=== PATIENT | male | born 1965 | race African-American/Black ===

== ENCOUNTER 2018-09-08 13:57 | Inpatient (IN) | payer MEDICAID, OTHER ==
[~2018-09-08] VITALS: Ht 182.9 cm; Wt 77.1 kg
[~2018-09-08 13:57] MED LIST: BISA-49 PO; CEFU500T PO; CEFU500T50 PO; CEPH-376 PO; CIPR500T87 PO; DOCU100C33 PO; METAMUCIL425 GM PO; OXYC-302 PO; TAMS-11 PO
[2018-09-08 14:36] LABS: BASOPHILS # (AUTO) 0.02 x10^3/uL (0-0.1); BASOPHILS % (AUTO) 1 % (0-1); EOSINOPHILS % (AUTO) 7 % (1-7); LYMPHOCYTES # (AUTO) 1.24 x10^3/uL (1-3.4); LYMPHOCYTES % (AUTO) 29 % (22-44); MD NO; MEAN CORPUSCULAR HEMOGLOBIN 30.2 pg (27.5-34.5); MEAN CORPUSCULAR HGB CONC 33.6 g/dL (33.2-36.2); MEAN CORPUSCULAR VOLUME 90.1 fL (81-97); MEAN PLATELET VOLUME 8.6 fL (7.4-10.4); MONOCYTES # (AUTO) 0.23 x10^3/uL (0.2-0.8); MONOCYTES % (AUTO) 5 % (2-9); NEUTROPHILS # (AUTO) 2.46 x10^3/uL (1.8-6.8); NEUTROPHILS % (AUTO) 58 % (42-75); PLATELET COUNT 271 x10^3/uL (130-400); RED BLOOD COUNT 5.29 x10^6/uL (4.38-5.82); RED CELL DISTRIBUTION WIDTH 14.1 % (9.4-14.8)
[2018-09-08 14:37] LABS: ALBUMIN 3.8 g/dL (3.4-5.0); ANION GAP 7 mmol/L (5-15); CALCIUM 9.2 mg/dL (8.5-10.1); CHLORIDE 105 mmol/L (98-107); CREATININE 3.52 mg/dL (0.7-1.3)
[2018-09-08 14:40] LABS: TROPONIN I 0.019 ng/mL (0.000-0.045)
[2018-09-08] MEDS ORDERED: LABETALOL 5MG/ML, 20ML ONE (15:54)
[2018-09-08] MEDS ORDERED: LABETALOL 5MG/ML, 20ML IVPush ONE (16:00)
[2018-09-08] MEDS ORDERED: SODIUM CHLORIDE FLUSH 10ML SYR IVF PRN (17:00)
[2018-09-08] MEDS ORDERED: hydrALAzine 20 MG/ML, 1ML IVPush PRN (17:30)
[2018-09-08] MEDS ORDERED: HYDROcodone/APAP 5/325 TABLET PO PRN (17:30)
[2018-09-08] MEDS ORDERED: ACETAMINOPHEN 325 MG TABLET PO PRN (17:30)
[2018-09-08] MEDS ORDERED: TEMAZEPAM 15 MG CAPSULE PO PRN (17:30)
[2018-09-08] MEDS ORDERED: ONDANSETRON 2MG/ML, 2ML IVPush PRN (17:30)
[2018-09-08] MEDS ORDERED: morphine SULFATE 10 MG/ML, 1ML IVPush PRN (17:30)
[2018-09-08 18:11] LABS: BASOPHILS # (AUTO) 0.03 x10^3/uL (0-0.1); BASOPHILS % (AUTO) 1 % (0-1); EOSINOPHILS # (AUTO) 0.34 x10^3/uL (0-0.4); EOSINOPHILS % (AUTO) 7 % (1-7); LYMPHOCYTES # (AUTO) 1.59 x10^3/uL (1-3.4); LYMPHOCYTES % (AUTO) 33 % (22-44); MD NO; MEAN CORPUSCULAR HEMOGLOBIN 29.7 pg (27.5-34.5); MEAN CORPUSCULAR HGB CONC 33.4 g/dL (33.2-36.2); MEAN PLATELET VOLUME 8.8 fL (7.4-10.4); MONOCYTES # (AUTO) 0.29 x10^3/uL (0.2-0.8); MONOCYTES % (AUTO) 6 % (2-9); NEUTROPHILS # (AUTO) 2.51 x10^3/uL (1.8-6.8); NEUTROPHILS % (AUTO) 53 % (42-75); PLATELET COUNT 258 x10^3/uL (130-400); RED BLOOD COUNT 4.86 x10^6/uL (4.38-5.82); RED CELL DISTRIBUTION WIDTH 14.2 % (9.4-14.8)
[2018-09-08 18:35] VITALS: BP 179/109
[2018-09-08] MEDS: SODIUM CHLORIDE 0.9% 1,000 ML IV SCH (21:59)
[2018-09-08] MEDS: METOPROLOL TARTRATE 50 MG TABLET PO SCH (22:00)
[2018-09-08] MEDS: NICOTINE 14MG/24 HR PATCH.TD24 TD SCH (22:00)
[2018-09-08 22:19] LABS: TROPONIN I 0.024 ng/mL (0.000-0.045)
[2018-09-08 23:11] LABS: AMPHETAMINE SCREEN, URINE Positive (Negative); BARBITURATE SCREEN, URINE Negative (Negative); BENZODIAZEPINE SCREEN, URINE Negative (Negative); CANNABINOID SCREEN, URINE Negative (Negative); COCAINE SCREEN, URINE Negative (Negative); METHADONE SCREEN, URINE Negative (Negative); OPIATE SCREEN, URINE Negative (Negative)
[2018-09-09 01:05] VITALS: BP 154/78
[2018-09-09 04:43] LABS: ALBUMIN 3.1 g/dL (3.4-5.0); ANION GAP 8 mmol/L (5-15); CALCIUM 8.6 mg/dL (8.5-10.1); CHLORIDE 110 mmol/L (98-107)
[2018-09-09 04:46] LABS: ALANINE AMINOTRANSFERASE 23 U/L (12-78); ALKALINE PHOSPHATASE 80 U/L (45-117); BILIRUBIN,TOTAL 0.4 mg/dL (0.2-1.0); CHOL/HDL RATIO 2.5; CHOLESTEROL, TOTAL 140 mg/dL (140-239); HDL CHOL % 39 % (26-37); HDL CHOLESTEROL (DIRECT) 55 mg/dL (40-60); LDL CHOLESTEROL,CALCULATED 72 mg/dL (54-169); LDL/HDL RATIO 1.3 (0.5-3.0); TOTAL PROTEIN 6.9 g/dL (6.4-8.2); TRIGLYCERIDES 66 mg/dL (50-200); TROPONIN I 0.022 ng/mL (0.000-0.045); VLDL CHOLESTEROL 13 mg/dL (0-25)
[2018-09-09] MEDS: SODIUM CHLORIDE 0.9% 1,000 ML IV SCH ×2 (06:00→22:54)
[2018-09-09 07:10] VITALS: BP 174/108
[2018-09-09] MEDS: AMLODIPINE 5 MG TABLET PO SCH (08:12)
[2018-09-09] MEDS: ENOXAPARIN 30 MG/0.3 ML SQ SCH (08:12)
[2018-09-09] MEDS: METOPROLOL TARTRATE 50 MG TABLET PO SCH ×2 (08:13→22:55)
[2018-09-09] MEDS ORDERED: REGADENOSON 0.4 MG/5 ML SYRINGE ONE (08:45)
[2018-09-09 09:52] VITALS: BP 174/108
[2018-09-09] MEDS ORDERED: NITROGLYCERIN SINGLE TAB 0.4 MG SL ONE (10:43)
[2018-09-09 12:05] VITALS: BP 131/82
[2018-09-09 13:20] VITALS: BP 141/85
[2018-09-09 16:09] LABS: CREATININE,URINE RANDOM 65.2 mg/dL
[2018-09-09 19:45] VITALS: BP 143/84
[2018-09-09] MEDS: NICOTINE 14MG/24 HR PATCH.TD24 TD SCH (22:54)
[2018-09-10 00:38] VITALS: BP 137/76
[2018-09-10 05:33] LABS: CHLORIDE 109 mmol/L (98-107)
[2018-09-10 05:41] LABS: ANION GAP 10 mmol/L (5-15); CALCIUM 8.7 mg/dL (8.5-10.1); CREATININE 2.89 mg/dL (0.7-1.3)
[2018-09-10 07:36] VITALS: BP 144/87
[2018-09-10] MEDS: SODIUM CHLORIDE 0.9% 1,000 ML IV SCH (07:45)
[2018-09-10] MEDS ORDERED: HYDROCHLOROTHIAZIDE 25 MG TABLET PO SCH (09:00)
[2018-09-10] MEDS: METOPROLOL TARTRATE 50 MG TABLET PO SCH (09:38)
[2018-09-10] MEDS: AMLODIPINE 5 MG TABLET PO SCH (09:38)
[2018-09-10] MEDS: ENOXAPARIN 30 MG/0.3 ML SQ SCH (09:40)
[2018-09-10] MEDS ORDERED: NICO-486 TD (13:30)
[2018-09-10] MEDS ORDERED: HYDR25TA6 PO (13:30)
[2018-09-10] MEDS ORDERED: AMLO5TAB7 PO (13:30)
[2018-09-10] MEDS ORDERED: HYDR-3343 PO (13:30)
[2018-09-10] MEDS ORDERED: METO50TA82 PO (13:30)
[2018-09-10] MEDS ORDERED: SIMV20TA PO (13:32)
[2018-09-10 14:28] VITALS: BP 146/87
[2018-09-11] MEDS ORDERED: ENOXAPARIN 40 MG/0.4 ML SQ SCH (09:00)
== END 2018-09-10 16:05 | disposition home or self-care (01) | DRG 304 ==
LOC: ED 15:06 → SUATTDRO 16:44 → EDIP 17:02 → 5SO 18:19
PROVIDERS: ADMIT Internal Medicine; ATTEND Internal Medicine
DX: I16.1 Hypertensive emergency (principal); N17.0 Acute kidney failure with tubular necrosis; I20.1 Angina pectoris with documented spasm; N13.30 Unspecified hydronephrosis; I12.9 Hypertensive chronic kidney disease with stage 1 through stage 4 chronic kidney disease, or unspecified chronic kidney disease; N40.1 Benign prostatic hyperplasia with lower urinary tract symptoms; N18.3 Chronic kidney disease, stage 3 (moderate); E78.5 Hyperlipidemia, unspecified; F17.200 Nicotine dependence, unspecified, uncomplicated; F15.90 Other stimulant use, unspecified, uncomplicated; Z79.899 Other long term (current) drug therapy; Z72.89 Other problems related to lifestyle; R33.9 Retention of urine, unspecified; I10 Essential (primary) hypertension
CPT/HCPCS: 36415; 71045; 71046; 76770; 78452; 80048; 80053; 80061; 80307; 82040; 82570; 82962; 83735; 83880; 84100; 84156; 84300; 84443; 84484; 85025; 93005; 93017; 93306; 96374; 99285; G0378; J1650; J2785; A9502; C9898; J7030

== ENCOUNTER → 2021-04-08 | Outpatient (CLI) | payer OTHER ==
[~2021-04-08] MED LIST changes: +AMLO-150 PO; +HYDR-3343 PO; +HYDR25TA6 PO; +METO50TA82 PO; +NICO-486 TD; -OXYC-302 PO; +OXYC1TAB14 PO; +SIMV20TA PO
== END | disposition home or self-care (01) ==
LOC: CFH 13:04
PROVIDERS: ATTEND Internal Medicine Nephrology
DX: N26.1 Atrophy of kidney (terminal) (principal); N13.30 Unspecified hydronephrosis; R80.9 Proteinuria, unspecified; N18.4 Chronic kidney disease, stage 4 (severe)
CPT/HCPCS: 76770